=== PATIENT | female | born 1980 | race Caucasian/White ===

== ENCOUNTER 2019-03-26 15:12 | Emergency (ER) | payer MEDICAID, SELFPAY ==
[2019-03-26 15:14] VITALS: BP 134/76; PULSE 79; RESP 18; TEMP 36.3; O2SAT 97; BMI 43.4
--- NOTE | 2019-03-26 16:02 | ED.VISSUMM ---
- ER Visit Summary Date of Service: 03/26/19 Chief Complaint: Flank pain History of Present Illness: The patient is a 38 F with left-sided flank pain. Symptoms have been going on for 4 days. The patient was seen earlier in the month at an outside facility and was diagnosed with pyelonephritis. She completed her antibiotics but never felt totally better. Her symptoms have recurred. She does have some nausea. Denies any other GI symptoms. She does have dysuria but denies any other symptoms. History of kidney stones. The CT done on March 08 did not show any signs of calculi. No history of abdominal surgeries. Physical Examination: Afebrile and vital signs are unremarkable. Patient appears uncomfortable but not toxic or in distress. Heart regular. Lungs clear. Abdomen soft and nontender. Left CVA tender to palpation. Skin appears normal. Test Results: We will check urine, test, labs. Emergency Department Course and Treatment: Patient treated with fluids, morphine, Zofran while awaiting testing as above. I reviewed her imaging from March 08, and she did not have calculi. CBC and BMP unremarkable. Urinalysis shows signs of infection. test negative. Urine culture was added. I reviewed her culture from March 08. She did have a E. coli and it was sensitive to multiple antibiotics. The patient believes she was on Cipro. It was sensitive to Cipro. She said that she improved after taking Cipro but then her symptoms recurred. We will repeat the culture. We will treat with Bactrim. She was sensitive to bath previously. Patient was advised that her findings are concerning for pyelonephritis. She does not have sepsis or any other complications at this point. I believe she is appropriate for outpatient therapy. I advised her that she absolutely must follow-up with her primary care doctor to document resolution. If she is not improving or continues to be infected, she will need to see a specialist. We discussed this and the patient voiced understanding. Treatment Plan: Cultures pending. Bactrim. Zofran as needed. Follow-up with primary care. Disposition: Discharge Impression: 1. Acute pyelonephritis This note was generated with [employer] software. It may contain incorrect words, spelling, and punctuation that were not noted in review of the chart prior to signing ED Disposition - Plan for ED Patient: Referrals: Care Physician,No Primary [Primary Care Provider] -
[2019-03-26 16:23] LABS: Mucous, Urine 0 SEEN /hpf (<or=2+); Red Blood Cells-Urine 0 SEEN /hpf (0-5)
[2019-03-26 16:26] LABS: Color, Urine Yellow (Yellow); Glucose, Dipstick Normal (Normal); Ketone-Dipstick Negative (Negative); Leukocyte Esterase-Dipstick 500 /ul (Negative); Nitrite-Dipstick Negative (Negative); Occult Blood-Urine 25 /ul (Negative); Protein-Dipstick 30 mg/dl (Negative); Urine Bilirubin Dipstick Negative (Negative); Urine Clarity Cloudy (Clear); Urine Urobilinogen Normal (Normal); Urine pH 6.5 (5.0 - 8.0)
[2019-03-26] MEDS: 0.9% Normal Saline 1,000 ML 1000 ML IV (16:26)
[2019-03-26] MEDS: Ondansetron 4 MG/2 ML Vial IV (16:26)
[2019-03-26 16:27] LABS: Internal QC Validated? YES +Cl - CLEAR BKGD
[2019-03-26] MEDS: Morphine 4 MG/ML Syringe IV (16:27)
[2019-03-26 16:28] LABS: Pregnancy, Urine Negative Negative
[2019-03-26 16:35] LABS: Bacteria 2+ /hpf (None Seen); Trichomonas 0-5 SEEN /hpf (None Seen)
[2019-03-26 16:36] LABS: Squamous Epithelial Cells - UA 10-25 SEEN /hpf (5-10); White Blood Cells 25-50 SEEN /hpf (0-5)
[2019-03-26 16:41] LABS: Absolute Lymphocyte Count 3.29 X10^3/ul (0.83-4.51); Absolute Neutrophil Count 5.4 X10^3/uL (2.0-7.7); Basophil# 0.03 X10^3/uL; Basophil% 0.3 % (0-1); Eosinophil# 0.22 X10^3/uL; Eosinophils% 2.3 % (0-5); Hematocrit 40.8 % (37-47); Hemoglobin 13.8 g/dl (12.0-15.0); Lymphocyte # 3.29 X10^3/ul (4.0); Lymphocyte % 34.5 % (19-41); Mean Corp Hgb Conc 33.8 g/gl (32-36); Mean Corpuscular Hgb 30.7 pg (27.0-32.0); Mean Corpuscular Volume 90.9 fL (81-99); Mean Platelet Vol. 8.9 fl (6.2-12.0); Monocyte# 0.57 X10^3/uL; Neutrophil # 5.42 X10^3/uL (2.7-7.7); Neutrophil % 56.8 % (47-70); Platelet Count 337 K/mm3 (150-450); RBC Distribution Width CV 13.2 % (11.6-14.6); RBC Distribution Width SD 43.7 fl (35.1-43.9); Red Blood Count 4.49 M/mm3 (4.2-5.4); White Blood Count 9.5 K/mm3 (4.4-11.0)
[2019-03-26 16:52] LABS: POSITIVE COUNT NO; POSITIVE DIFFERENTIAL NO; POSITIVE MORPHOLOGY NO
[2019-03-26 16:53] LABS: Anion Gap 6 (5-15); BUN 10 mg/dL (7-18); BUN/Creat Ratio 14.3 RATIO (10-20); Calcium,Total 8.6 mg/dL (8.5-10.1); Chloride 107 mmol/L (98-107); EST Glomerular Filtration Rate 100 mL/min (>60); Est Glom Filt Rate - Afr Amer 122 mL/min (>60); Estimated Creatinine Clearance 108.04 ml/min; Glucose 84 mg/dL (74-106); Potassium 3.9 mmol/L (3.5-5.1); Sodium Level 140 mmol/L (136-145)
--- NOTE | 2019-03-26 17:48 | ED.DEP ---
ED Disposition - Plan for ED Patient: Instructions: ED Kidney Infec Female Prescriptions: Ondansetron [Zofran Odt] 4 mg PO Q8H PRN PRN #10 tab PRN Reason: Nausea Smz/Tmp Ds [Bactrim Ds] 1 tab PO BID #14 tab Additional Instructions: Follow up with your PCP Dr. Pereira
[2019-03-26] MEDS: Smz/Tmp Ds Tablet 1 TABLET PO (17:53)
[2019-03-26 17:58] VITALS: BP 129/81; PULSE 67; RESP 14; O2SAT 99
== END 2019-03-26 17:59 | disposition home or self-care (01) ==
LOC: ED 16:01
PROVIDERS: Emergency Medicine; Emergency Provider Emergency Medicine
DX: N10 Acute pyelonephritis (principal); Z72.0 Tobacco use
CPT/HCPCS: 80048; 81001; 81025; 85025; 87086; 87088; 87186; 96361; 96374; 96375; 99283; J7030; J2405